=== PATIENT | female | born 1960 | race Caucasian/White ===

== ENCOUNTER → 2020-06-22 | Outpatient (REF) ==
--- NOTE | 2020-06-23 06:24 | REP ---
INDICATION: DDD COMPARISON: None. TECHNIQUE: AP, lateral, coned-down views of the lumbar spine. FINDINGS: The vertebral bodies are intact and there is no acute fracture/compression injury or subluxation. Hypertrophic facet changes at L4-5 cause 1.5 mm chronic anterolisthesis. Endplate sclerosis, disc space narrowing, and facet hypertrophy noted at L5-S1. Remainder of the examination is essentially age-appropriate. IMPRESSION: 1. Relatively new moderate degenerative change at L4-5 and L5-S1. <Electronically signed by Danie Kan > 06/23/20 [id number]
--- NOTE | 2020-06-23 06:34 | REP ---
INDICATION: DDD. COMPARISON: None. TECHNIQUE: AP pelvis with neutral and frog-lateral views of the right and left hip. FINDINGS: No acute fracture or dislocation. Symmetric early degenerative changes include increased sclerosis along the acetabular roof with minimal joint space narrowing and subtle marginal spurring. IMPRESSION: Mild symmetric degenerative changes to the bilateral hips. <Electronically signed by Danie Kan > 06/23/20 [id number]
== END ==
LOC: M RAD 15:17
PROVIDERS: ATTEND Internal Medicine
DX: M54.5 Low back pain (principal)